=== PATIENT | male | born 2000 | race Caucasian/White ===

== ENCOUNTER 2023-01-12 16:12 | Emergency (ER) | payer OTHER ==
[~2023-01-12] VITALS: Ht 48.3 cm; Wt 81.0 kg
[2023-01-12] MEDS ORDERED: CEPHALEXIN500 M1 PO (17:45)
[2023-01-12 18:05] VITALS: BP 134/78
== END 2023-01-12 18:18 | disposition home or self-care (01) | DRG 605 ==
LOC: ED 16:12
PROC: 0HQFXZZ Repair Right Hand Skin, External Approach (ICD-10-PCS; principal; 2023-01-12)
DX: S61.210A Laceration without foreign body of right index finger without damage to nail, initial encounter (principal); W22.09XA Striking against other stationary object, initial encounter; Y93.89 Activity, other specified; Y92.009 Unspecified place in unspecified non-institutional (private) residence as the place of occurrence of the external cause